=== PATIENT | female | born 1940 | race Caucasian/White ===

== ENCOUNTER 2016-08-12 07:46 | Day surgery (SDC) | payer MEDICARE ==
[~2016-08-12] VITALS: Ht 177.8 cm; Wt 95.6 kg
[~2016-08-12 07:46] MED LIST: COUM1TAB PO; DIGO50SO PO; GLUCTAB PO; INDA2.5T3 PO; LEVO50TA48 PO; POTA25TA4 PO; WARF-20 PO
[2016-08-12] MEDS ORDERED: NS 1000P @30 MLS/HR (KVO) IV SCH (08:30)
[2016-08-12 08:37] LABS: AUTOMATED NEUTROPHIL # 7.5 TH/MM3 (1.8-7.7); BASOPHIL # 0.1 TH/MM3 (0-0.2); BASOPHIL % 0.5 % (0.0-2.0); EOSINOPHIL # 0.1 TH/MM3 (0-0.4); EOSINOPHIL % 1.1 % (0.0-4.0); HEMATOCRIT 42.5 % (35.0-46.0); HEMO FLAGS DIFF FINAL; LYMPH % 13.6 % (9.0-44.0); LYMPHOCYTE # 1.3 TH/MM3 (1.0-4.8); MEAN CELL VOLUME 86.4 FL (80.0-100.0); MEAN CORPUSCULAR HGB CONC 33.5 % (32.0-36.0); MONO % 8.6 % (0.0-8.0); NEUT % 76.2 % (16.0-70.0); PLATELET COUNT 189 TH/MM3 (150-450); RED BLOOD COUNT 4.92 MIL/MM3 (4.00-5.30); RED CELL DISTRIBUTION WIDTH 13.9 % (11.6-17.2); WHITE BLOOD COUNT 9.9 TH/MM3 (4.0-11.0)
[2016-08-12 08:44] LABS: APTT (PATIENT) 25.7 SEC (24.3-30.1); PROTHROMBIN TIME - PATIENT 11.3 SEC (9.8-11.6)
[2016-08-12] MEDS ORDERED: NITR1SUB3 SL (08:44)
[2016-08-12] MEDS ORDERED: OMEP20TA PO (08:44)
[2016-08-12] MEDS ORDERED: TRIA37.53 PO (08:44)
[2016-08-12] MEDS ORDERED: OMEGCAP PO (08:44)
[2016-08-12] MEDS ORDERED: ATEN25TA PO (08:44)
[2016-08-12 08:45] VITALS: BP 157/89; PULSE 50; RESP 16; O2SAT 95
[2016-08-12 08:53] LABS: BICARBONATE 27.4 MEQ/L (21.0-32.0); POTASSIUM 4.3 MEQ/L (3.5-5.1)
[2016-08-12] MEDS ORDERED: HEPARIN-NS/PF INJ 500 ML ONE (09:20)
[2016-08-12] MEDS ORDERED: HEPARIN SODIUM - IV 10,000 UNITS/10 ML VIAL ONE (09:21)
[2016-08-12] MEDS ORDERED: MIDAZOLAM HCL 2 MG/2 ML VIAL ONE (09:21)
[2016-08-12] MEDS ORDERED: VERAPAMIL HCL 5 MG/2 ML VIAL ONE (09:21)
[2016-08-12] MEDS ORDERED: NITROGLYCERIN INJ 5 ML ONE (09:21)
[2016-08-12] MEDS ORDERED: IOHEXOL 350 MG/ML 100 ML BTL (for Cath Lab) OTHER ONE (10:40)
[2016-08-12] MEDS ORDERED: SODIUM CHLORIDE 0.9% FLUSH 5 ML FLUSH IVF PRN (11:00)
[2016-08-12] MEDS ORDERED: MISC INFORMATION XX ONE (11:00)
--- NOTE | 2016-08-12 12:30 | MA ---
cc: ALBERTO HOOKS GORDON J. MD KLANCKE,LEWIS Iverson M.D. DATE August 12, [address] Merrick Arshad PRIMARY RECEIVING TEAM MEMBER Dr. Mccord PROCEDURE Left heart catheterization, coronary angiogram. PREPROCEDURE DIAGNOSIS Multiple PVCs noted leading to stress test which was abnormal. POSTPROCEDURE DIAGNOSIS Minimal coronary artery disease. MEDICATIONS GIVEN 1. Versed 0.5 mg. 2. Fentanyl 25 mcg. 3. Verapamil 2.5 mg. 4. Nitro 200 mcg. 5. Heparin 3800 units. CONTRAST 50 cc. FLUOROSCOPY 4.0 minutes ESTIMATED BLOOD LOSS 10 cc. PROCEDURAL SUMMARY Amy Condon is a pleasant 75-year-old female who was noted to have some palpitations and underwent a Holter monitor which showed multiple PVCs. Because of this, she underwent pharmacologic nuclear stress testing. On this she was found to have a moderate-sized fixed perfusion defect of the anterior wall with minimal jovan-infarct ischemia. Because of this she was recommended for cardiac catheterization. The risks, benefits and alternatives were explained and she consented as such. She presented to the lab and was prepped in the usual sterile fashion. Right radial artery was accessed using a modified Seldinger technique. Placement of a 5/6 Slender Sheath was then easily aspirated and flushed. The JR-4 was then advanced to the ascending aorta and across the aortic valve to measure left ventricular pressures, LVEDP 20. This was pulled back across the aortic valve showing no significant gradient of aortic stenosis. JR-4 was then used for selective angiography of the right coronary artery which is a large, dominant vessel which shows mild luminal irregularities and mild tortuosity but no significant disease. JR-4 was then exchanged for a JL-3.5 which was used for selective angiography of the left coronary system. The left coronary system has a short left main which shows good reflux. The left main bifurcates into an LAD and circumflex. The circumflex artery is an extremely small vessel with one small obtuse marginal off of it. The LAD is a very large vessel that has multiple diagonals and large septals off of it. The LAD is somewhat tortuous as well as the diagonals but no significant disease is noted. The JL-3.5 was then removed over a J-wire. A Radial Air-Band was placed with 10 cc of air on removal of the radial sheath. The patient left the [employer] cardiovascularly stable. IMPRESSIONS 1. Multiple PVCs noted on Holter monitor. 2. Abnormal stress test showing anterior wall scar with mild jovan-infarct ischemia. 3. Minimal coronary artery disease by cardiac catheterization. RECOMMENDATIONS 1. Continue with medical management. 2. Follow up with Dr. Mccord in the next 3-4 weeks. Thank you for allowing me to see Amy Condon. If there are any questions, please do not hesitate to call. Alberto Hooks DO VGP/SSB /10:44 AM /12:17 PM
--- NOTE | 2016-08-12 17:03 | EKG ---
Date Performed: 08/12/2016 Time Performed: 08:44:38 PTAGE: 75 years EKG: Atrial fibrillation with PVC(s) or aberrant ventricular conduction rSr'(V1) - probable norm al variant Possible anterior infarct - age undetermined Inferior/lateral ST-T changes are nonspecific Since previous tracing, no significant change noted Abnormal ECG PREVIOUS TRACING : 09/11/2012 15.33 DOCTOR: Alejandro Avila Interpretating Date/Time 08/12/2016 17:01:49
[2016-08-12] MEDS ORDERED: SODIUM CHLORIDE 0.9% FLUSH 5 ML FLUSH IVF SCH (21:00)
== END 2016-08-12 14:15 | disposition home or self-care (01) ==
LOC: HDOC 07:46 → HDIC 07:48 → HDOC 14:15
PROVIDERS: ATTEND Nuclear Medicine Nuclear Cardiology
DX: R94.39 Abnormal result of other cardiovascular function study (principal); I48.91 Unspecified atrial fibrillation; I42.9 Cardiomyopathy, unspecified; E78.5 Hyperlipidemia, unspecified; I49.3 Ventricular premature depolarization; E11.59 Type 2 diabetes mellitus with other circulatory complications
CPT/HCPCS: 80048; 85025; 85610; 85730; 93005; 93454; C1769; C1893; J1644; J2250; J3010; Q9967